=== PATIENT | male | born 1950 | race Caucasian/White ===

== ENCOUNTER 2018-12-19 13:00 | Day surgery (SDC) | payer MEDICARE, OTHER ==
[~2018-12-19 13:00] MED LIST: KETOROLAC TROMETHAMINE 0.45% 4 DROP/0.4 ML DROPERETTE OS PRN; LIDOCAINE 4% INJ/PF (40 MG/ML) 5 ML AMPUL OS PRN
[2018-12-19] MEDS: TROPICAMIDE 1% OPH SOLN 3 ML OS PRN ×3 (13:55→14:29)
[2018-12-19] MEDS: CYCLOPENTOLATE 0.2%/PHENYLEPHRINE 1% OPH SOLN 2 ML OS PRN ×3 (13:55→14:29)
[2018-12-19] MEDS: BESIFLOXACIN HCL 0.6% OPH SUSP 5 ML BOTTLE OS PRN ×4 (13:56→15:23)
[2018-12-19] MEDS: TETRACAINE HCL 0.5% OPH SOLN 4 ML OS PRN ×3 (13:57→14:37)
[2018-12-19] MEDS ORDERED: MIDAZOLAM 2 MG/2 ML INJ ONE (14:42)
[2018-12-19] MEDS: EPINEPHRINE INJ/PF 1 MG/1 ML AMPULE ONE ×2 (14:57)
[2018-12-19] MEDS: LIDOCAINE 1% INJ-PF (10 MG/ML) 30 ML SDV ONE ×3 (14:57→14:59)
[2018-12-19] MEDS: CHONDR SU A NA/HYALUR INTRAOC KIT (SURGICARE) ONE ×2 (14:57)
[2018-12-19] MEDS: DORZOLAMIDE HCL 2%/TIMOLOL MALEAT 0.5% OPH SOLN 10 ML OS PRN ×2 (15:23)
--- NOTE | 2018-12-20 09:15 | [facility] OPERATIVE REPORT E ---
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 PROCEDURE PERFORMED: Phacoemulsification with posterior chamber intraocular lens implant in the left eye. SURGEON: DAVID FLORENCE M.D. PAINTER RAILROAD CAR: Kelsi Morrison M.D. ANESTHESIA: Topical with IV sedation and monitored anesthesia care. TISSUE TO PATHOLOGY: None. BLOOD LOSS: None. COMPLICATIONS: None. INDICATIONS FOR SURGERY: The patient is a 68-year-old male who presented to our clinic complaining of difficulty reading and driving due to blurry vision in his left eye. On examination he was found to have a best corrected visual acuity of 20/40 in the left eye. Ophthalmoscopy revealed a 3+ nuclear, 3+ cortical degeneration, and 1+ posterior subcapsular cataract in the left eye with a normal-appearing cornea, retina, vitreous, and optic nerve. I discussed the findings of the exam with the patient. We discussed the risks, benefits, and alternatives of cataract extraction and intraocular lens implant in the left eye as a means of improving his vision. Risks were presented to the patient including infection, bleeding, retinal detachment, possible need for additional surgery. I explained to the patient he may need to wear glasses after surgery. After our discussion, he indicated his interest in having this procedure performed by signing an informed, witnessed consent form. REPORT OF PROCEDURE: On the day of surgery, he was given a topical application to the left eye while in the preop holding area that consisted of 0.5% tetracaine, 1% tropicamide, Cyclomydril, 0.6% Besivance, and 0.45% Acular. He was taken to the operating room where he was positioned in an upright sitting manner and his cornea limbus in the left eye was marked with a fine-tipped marking pen at the 9 o'clock, 12 o'clock, and 3 o'clock positions. He was then positioned in a supine manner, and he was prepped and draped in a standard ophthalmic fashion. Intravenous sedation was administered. Attention was directed to the left eye where a Connor ring was used to katiuska the axis of the toric lens implant with a corneal marker. The Connor ring was oriented with the 9 o'clock position of the lens at 180 degrees, 12 o'clock at 90 degrees, and 3 o'clock at 0 degrees. A katiuska was made on the cornea at 15 degrees. A 15-degree blade was used to make a paracentesis at the 5:30 position at the limbus. The anterior chamber was filled with 0.3 mL of 1% methylparaben-free lidocaine, and after 30 seconds the anterior chamber was filled with viscoelastic material. A keratome was used to make an incision at the temporal corneal limbus. A continuous curvilinear capsulorrhexis was then made in the anterior capsular lens with a cystotome. The lens was hydrodissected using balanced saline solution. The lens nucleus was removed by phacoemulsification using a bxqjgh-ghl-hewqwjq technique. The lens cortex was removed by irrigation and aspiration. The posterior capsular bag was then filled with viscoelastic material and a lens implant was inserted into the posterior capsular bag. The lens chosen for this case is a 1-piece acrylic lens from [employer], model TXK283, serial number [id number]. The lens power is 15.5 diopters, *------* 2.25 mm diopter cylinder. The lens was removed from its package, inspected, and found to be free of defects. It was loaded into an [employer] holy cross roughing mill operator. The roughing mill operator was passed through the corneal incision. The lens was advanced into the posterior capsular bag. It was centered in the bag with a [place] spatula, and it was rotated to orient the almazan on the lens implant with the almazan on the cornea at the 15-degree axis. The viscoelastic material was then removed by irrigation and aspiration. The wounds were closed by stromal hydration. They were tested with Weck-Shanique sponges and found to have no leaks. The intraocular pressure was assessed by manual palpation and found to be within a physiologic range. The Connor ring was then placed once again on the cornea, and the positioning of the lens was inspected and found to be oriented to 15-degree axis. The drapes were removed. Periocular skin was flushed with a wet followed by dry 4 x 4 gauze. Drops of Timolol and Besivance were then instilled in the inferior cul-de-sac of the left eye and it was covered with a Lopez shield. He was taken to the recovery room in good condition. He tolerated the procedure well. He was given a prescription for Durezol, Ilevro, and gatifloxacin to use every 2 hours while awake in the left eye. He will return to my clinic for a follow-up eval the day after surgery. DICTATING PHYSICIAN: DAVID FLORENCE MD [id number] PHY#: [id number] ID: [id number] JOB#: [id number] ACCT: [id number] cc:DAVID FLORENCE M.D. >
--- NOTE | 2018-12-23 08:46 | [facility] OPERAT[facility] REPORT E ---
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 PROCEDURE PERFORMED: Phacoemulsification and posterior intraocular lens implant in the left eye. SURGEON: BINA GARCIA M.D. GEAR MACHINIST: Kelsi Morrison M.D. ANESTHESIA: Topical with monitored anesthesia care and IV sedation. ESTIMATED BLOOD LOSS: None. TISSUE TO PATHOLOGY: None. COMPLICATIONS: None. INDICATIONS FOR SURGERY: The patient is a 68-year-old male who presented to our clinic complaining of difficulty reading due to blurry vision in his left eye. On examination he was found to have a best corrected visual acuity of 20/40 in the left eye. Ophthalmoscopy revealed a 3+ nuclear, 3+ cortical, and 1+ PSC cataract in the visual axis of the left eye with a normal-appearing cornea, retina, vitreous, and optic nerve. I discussed the findings of the exam with the patient. We discussed the risks, benefits, and alternatives of cataract extraction and intraocular lens implant in the left eye as a means of improving his vision. Risks presented to the patient include infection, bleeding, retinal detachment, possible need for additional surgery. After a toric lens is inserted I explained that vision change might occur with rotation of the lens implant which may require repositioning to improve his uncorrected vision. After our discussion, he indicated his interest in having this procedure performed by signing an informed, witnessed consent form. REPORT OF PROCEDURE: On the day of surgery, the patient was given a topical application to the left eye while in the preop holding area that consisted of 0.5% tetracaine, 1% tropicamide, Cyclomydril, 0.6% Besivance, and 0.45% Acular. He was taken to the operating room where he was positioned in upright sitting while his cornea limbus was marked in the left eye with a fine-tipped marking pen at the 3 o'clock, 9 o'clock, and 12 o'clock positions. He was then positioned in a supine manner, and he was prepped and draped in the standard ophthalmic fashion. Attention was directed to the left eye where a paracentesis was created at the 5:30 position at the limbus with a 15-degree blade. A Connor ring was placed on the cornea with almazan made previously on the limbus oriented with the Connor ring so that the 9 o'clock position was aligned with the 0-degree axis on the ring, 12 o'clock with the 90-degree axis, and 3 o'clock with the 180-degree axis. A katiuska was made at the 15-degree axis. The anterior chamber was then filled with 0.3 mL of 1% methylparaben-free lidocaine, and after 30 seconds the anterior chamber was filled with viscoelastic material. A 3-plane corneal incision was made with a moises keratome at the 3 o'clock position at the limbus. A continuous curvilinear capsulorrhexis was then made in the anterior capsular lens with a 30-gauge cystotome. The lens was hydrodissected using balanced saline solution. The lens nucleus was removed by phacoemulsification using a bmqdpj-uwh-wwkmabu technique. The lens cortex was removed by irrigation and aspiration. The posterior capsular bag was filled with viscoelastic material and a lens implant was inserted into the DICTATION ENDS HERE DICTATING PHYSICIAN: BINA GARCIA M.D. [id number] PHY#: [id number] ID: [id number] JOB#: [id number] ACCT: [id number] cc:DAVID FLORENCE M.D., HEATH M.D. >
== END 2018-12-19 16:02 | disposition home or self-care (01) ==
LOC: SC 13:00
PROVIDERS: ATTEND Ophthalmology
DX: H25.812 Combined forms of age-related cataract, left eye (principal); Z98.41 Cataract extraction status, right eye; K21.9 Gastro-esophageal reflux disease without esophagitis; Z87.891 Personal history of nicotine dependence; Z85.53 Personal history of malignant neoplasm of renal pelvis; Z90.5 Acquired absence of kidney
CPT/HCPCS: 66984; V2787; J2250; J3490 ×3; A9270; J0171; 142

== ENCOUNTER → 2019-09-11 | Outpatient (CLI) | payer MEDICARE, OTHER ==
[2019-09-12 08:16] LABS: CARBOHYDRATE ANTIGEN 19-9 25 U/mL (0-35)
== END ==
LOC: OD 13:26
PROVIDERS: ATTEND Surgery
DX: C17.0 Malignant neoplasm of duodenum (principal); R97.8 Other abnormal tumor markers; C65.2 Malignant neoplasm of left renal pelvis
CPT/HCPCS: 36415; 82378; 86301; 86316